=== PATIENT | female | born 1940 | race Caucasian/White ===

== ENCOUNTER 2018-04-23 08:19 | Outpatient (CLI) | payer MEDICARE, BC ==
--- NOTE | 2018-04-23 09:41 | ULT ---
ABDOMINAL ULTRASOUND: HISTORY: Followup of hepatic cyst, abdominal pain. COMPARISON: A 05/16/06 CT study. FINDINGS: Real-time images of the upper abdomen demonstrate a large gallstone within the gallbladder. The comm on duct is 4 mm. The liver parenchyma shows a 3.6 cm cyst in the more posterior aspect of the liver which appears to be more left lobe. Minimally increased in size as compared to the 2006 study when i t measured in the 3 cm range. Differences could be just on the differences of ultrasound and CT. Th e spleen measures 10.4 cm in length. Right and left kidneys are normal in size and not obstructed. Pancreas is obscured. Abdominal aorta and IVC regions appear unremarkable. IMPRESSION: 1. Large gallstone with a normal caliber common duct. 2. A 3.2 x 3.6 cm hepatic cyst. POS: [facility]
--- NOTE | 2018-04-23 15:53 | MMO ---
BILATERAL SCREENING MAMMOGRAM: HISTORY: Annual screening examination. History of a benign left breast biopsy. COMPARISON: 04/02/12, 03/25/13, 03/31/14 exams. Films are reviewed with the assistance of computer-aided detection. FINDINGS: The breasts are heterogeneously dense. There are popcorn-type calcifications and other benign-appear ing calcifications seen in both breasts. There is no dominant mass, suspicious calcification, or oth er signs of malignancy. IMPRESSION: BI-RADS category 2 - benign findings. BIRADS 2: Benign Finding(s) Routine annual screening mammography (for women over age 40) POS: [facility]
== END 2018-04-23 08:20 | disposition home or self-care (01) ==
LOC: SCSULT 08:19
PROVIDERS: ATTEND Internal Medicine
DX: Z12.31 Encounter for screening mammogram for malignant neoplasm of breast (principal); N28.1 Cyst of kidney, acquired; K76.89 Other specified diseases of liver; K80.20 Calculus of gallbladder without cholecystitis without obstruction
CPT/HCPCS: 76700; 77067

== ENCOUNTER 2019-05-13 14:18 | Outpatient (CLI) | payer MEDICARE, BC ==
--- NOTE | 2019-05-13 15:19 | BD ---
DEXA BONE DENSITY STUDY: Date: 05/13/19 HISTORY: Postmenopausal. FINDINGS: Lumbar Spine: BMD (g/cm2) L1 1.099 T-Score: +1.0 L2 1.099 T-Score: +0.6 L3 1.169 T-Score: +0.8 L4 1.105 T-Score: +0.4 Total 1.119 T-Score: +0.7 Left Femoral Neck: 0.737 T-Score: -1.0 Total Femur: 0.974 T-Score: +0.3 IMPRESSION: Normal bone mineral density of the lumbar spine and left femoral neck. POS: [facility]
--- NOTE | 2019-05-13 15:52 | MMO ---
Bilateral MAMMO Bilat Screen [facility]. CLINICAL HISTORY: Patient is 79 years old and is seen for screening. The patient has no family history of breast cancer. The patient has a history of uterine cancer at age 53. VIEWS: The views performed were: bilateral craniocaudal with tomosynthesis and bilateral mediolateral oblique with tomosynthesis. FILMS COMPARED: The present examination has been compared to prior imaging studies performed at [facility] on 04/02/2012, 03/25/2013, 03/31/2014 and 04/23/2018. MAMMOGRAM FINDINGS: The breasts are heterogeneously dense, which could obscure a lesion on mammography. Benign calcifications are noted bilaterally. There are no suspicious masses, suspicious calcifications, or new areas of architectural distortion. IMPRESSION: THERE IS NO MAMMOGRAPHIC EVIDENCE OF MALIGNANCY. A ROUTINE FOLLOW-UP MAMMOGRAM IN 1 YEAR IS RECOMMENDED. THE RESULTS OF THIS EXAM WERE SENT TO THE PATIENT. ACR BI-RADS Category 2 - Benign finding MAMMOGRAPHY NOTE: 1. A negative mammogram report should not delay a biopsy if a dominant of clinically suspicious mass is present. 2. Approximately 10% to 15% of breast cancers are not detected by mammography. 3. Adenosis and dense breasts may obscure an underlying neoplasm.
== END 2019-05-13 14:19 | disposition home or self-care (01) ==
LOC: BICMAMMO 14:18
PROVIDERS: ATTEND Internal Medicine
DX: Z12.31 Encounter for screening mammogram for malignant neoplasm of breast (principal); Z13.820 Encounter for screening for osteoporosis; Z78.0 Asymptomatic menopausal state; Z85.42 Personal history of malignant neoplasm of other parts of uterus
CPT/HCPCS: 77063; 77067; 77080

== ENCOUNTER 2019-12-23 13:25 | Outpatient (CLI) | payer MEDICARE, BC ==
--- NOTE | 2019-12-23 14:41 | MMO ---
Left Breast MAMMO Unilat Diag [facility]. CLINICAL HISTORY: Patient is 79 years old and is seen for diagnostic exam and palpable abnormality in the left breast. The patient has no family history of breast cancer. The patient has a history of uterine cancer at age 53. The patient has a history of left needle biopsy at age 16 - benign. VIEWS: The views performed were: left craniocaudal with tomosynthesis; left mediolateral oblique with tomosynthesis; left mediolateral with tomosynthesis; and left exaggerated craniocaudal with tomosynthesis. FILMS COMPARED: The present examination has been compared to prior imaging studies performed at [facility] on 03/25/2013, 03/31/2014, 04/23/2018 and 05/13/2019. This study has been interpreted with the assistance of computer-aided detection. MAMMOGRAM FINDINGS: The breast is heterogeneously dense, which could obscure a lesion on mammography. Benign calcifications are noted bilaterally. No mammographic or sonograhic abnormality is seen at the site of palpable concern in the left axilla. There are no suspicious masses, suspicious calcifications, or new areas of architectural distortion. IMPRESSION: THERE IS NO MAMMOGRAPHIC EVIDENCE OF MALIGNANCY. A ROUTINE FOLLOW-UP MAMMOGRAM IN 1 YEAR IS RECOMMENDED. THE RESULTS OF THIS EXAM WERE SENT TO THE PATIENT. ACR BI-RADS Category 2 - Benign finding MAMMOGRAPHY NOTE: 1. A negative mammogram report should not delay a biopsy if a dominant of clinically suspicious mass is present. 2. Approximately 10% to 15% of breast cancers are not detected by mammography. 3. Adenosis and dense breasts may obscure an underlying neoplasm. Reported by: TERRIE KHAN MD Electonically Signed: [id number]
--- NOTE | 2019-12-23 14:42 | ULT ---
"PRELIMINARY REPORT" Exam: Nuclear medicine cardiac stress with EF and wall motion HISTORY: Coronary disease. Status post CABG. Congestive heart failure. COMPARISON: 10/14/2018 TECHNIQUE: Patient was administered 9.10 mCi of technetium 99 sestamibi for rest imaging and 29 mm of technetium sestamibi for stress imaging. Cardiac gating was performed FINDINGS: Homogeneous distribution of radiotracer on the stress attenuation correction images. There does not a ppear to be any significant reversibility. End-diastolic volume is 162 mL End systolic volume is 89 mL 3 times a day is 1.0 Cardiac gating: Decreased motion and thickening involving the septum. Overall, there is also evidence of global hypokinesis. 45% ejection fraction IMPRESSION: No reversibility. 2. Global hypokinesis with decreased motion of the septum. 45% ejection fraction
--- NOTE | 2019-12-23 15:01 | ULT ---
ULTRASOUND SOFT TISSUE OTHER: (LEFT AXILLA) HISTORY: Palpable abnormality in the left axilla. FINDINGS: Correlation is made with mammogram of the same day. There is a 1.5 x 0.7 x 1.6 cm reniform nodule in the left axilla at the site of palpable concern with a cortical thickness of less than 3 mm and the presence of focal fatty hilum. The margins are martir h. This is consistent normal lymph node. IMPRESSION: BIRADS category 2 - benign findings. Return to annual mammographic screening. POS: [facility]
== END 2019-12-23 13:26 | disposition home or self-care (01) ==
LOC: BICMAMMO 13:25
PROVIDERS: ATTEND Internal Medicine
DX: N63.20 Unspecified lump in the left breast, unspecified quadrant (principal)
CPT/HCPCS: 76999; 77065; G0279

== ENCOUNTER 2021-12-13 13:13 | Outpatient (CLI) | payer MEDICARE, BC | END 2021-12-13 13:14 | disposition home or self-care (01) | LOC: BICMAMMO 13:13 | PROVIDERS: ATTEND Internal Medicine | DX: Z12.31 Encounter for screening mammogram for malignant neoplasm of breast (principal); M85.48 Solitary bone cyst, other site; M85.2 Hyperostosis of skull; Z85.42 Personal history of malignant neoplasm of other parts of uterus; Z91.89 Other specified personal risk factors, not elsewhere classified | CPT/HCPCS: 70260; 77063; 77067 ==

== ENCOUNTER 2022-04-11 14:13 | Outpatient (CLI) | payer MEDICARE, BC | END 2022-04-11 14:14 | disposition home or self-care (01) | LOC: BICRAD 14:13 | PROVIDERS: ATTEND Internal Medicine | DX: M25.551 Pain in right hip (principal); R10.9 Unspecified abdominal pain; K80.20 Calculus of gallbladder without cholecystitis without obstruction; M16.0 Bilateral primary osteoarthritis of hip | CPT/HCPCS: 72170; 74019 ==

== ENCOUNTER 2022-06-14 12:36 | Outpatient (CLI) | payer MEDICARE, BC ==
[~2022-06-14 12:36] MED LIST: Iopamidol-370 76% 500 ML 1 ML ONE
== END 2022-06-14 12:37 | disposition home or self-care (01) ==
LOC: BICCT 12:36
PROVIDERS: ATTEND Internal Medicine
DX: R10.30 Lower abdominal pain, unspecified (principal); K80.20 Calculus of gallbladder without cholecystitis without obstruction; M16.0 Bilateral primary osteoarthritis of hip
CPT/HCPCS: 74177; 82565; Q9967

== ENCOUNTER 2022-09-29 05:32 | Inpatient (IN) | payer MEDICARE, BC ==
[2022-09-28 12:50] VITALS: BMI 34.2
[2022-09-29] MEDS ORDERED: CEFAZOLIN 2 GM VIAL ONE (06:15)
[2022-09-29] MEDS ORDERED: Sodium Chloride 0.9% 100 ML ONE ×2 (06:15)
[2022-09-29] MEDS ORDERED: Tranexamic Acid 1,000 MG/10 ML VIAL ONE (06:15)
[2022-09-29] MEDS ORDERED: Vancomycin 1 GM/200 ML (PREMIX) BAG ONE (06:18)
[2022-09-29] MEDS ORDERED: Lidocaine 1% MPF 2 ML VIAL ONE (06:18)
[2022-09-29 07:09] LABS: SARS-CoV-2 NAA Rapid Test Not Detected (NotDetected)
[2022-09-29] MEDS ORDERED: diphenhydrAMINE 25 MG CAP PO PRN (07:15)
[2022-09-29] MEDS ORDERED: Acetaminophen 325 MG TAB PO PRN (07:15)
[2022-09-29] MEDS ORDERED: Zolpidem Tartrate 5 MG TAB PO PRN (07:15)
[2022-09-29] MEDS ORDERED: Ondansetron PF 4 MG/2 ML Vial IVP PRN (07:15)
[2022-09-29] MEDS ORDERED: Fentanyl 100 MCG/2 ML VIAL SLOW IVP PRN (07:15)
[2022-09-29] MEDS ORDERED: Promethazine HCl 25 MG/ML VIAL IM PRN (07:15)
[2022-09-29] MEDS ORDERED: HYDROcodone/Acetaminophen 10/325 mg Tablet PO PRN (07:15)
[2022-09-29] MEDS ORDERED: PHENYLEPHRINE-NS 100 MCG/ML 10 ML SYRINGE ONE (07:26)
[2022-09-29] MEDS ORDERED: PROPOFOL 200 MG/20 ML VIAL ONE (07:26)
[2022-09-29] MEDS ORDERED: Bupivacaine HCl 0.5%/Epinephrine 1:200,000/PF 30 ml Vial ONE (08:20)
[2022-09-29] MEDS ORDERED: Bupivacaine/Epinephrine 0.25% 30 ML VIAL ONE (08:20)
[2022-09-29] MEDS ORDERED: Bupivacaine 0.25% HCL 30 ML VIAL ONE (08:21)
[2022-09-29] MEDS ORDERED: Bupivacaine PF 0.5% 30 ML VIAL ONE (08:21)
[2022-09-29] MEDS: HYDROcodone/Acetaminophen 10/325 mg Tablet PO PRN ×2 (10:18→15:21)
[2022-09-29] MEDS: metFORMIN 500 MG TAB PO SCH ×2 (10:25→17:34)
[2022-09-29] MEDS: Sodium Chloride 0.9% 1,000 ML IV SCH ×2 (10:25→17:17)
[2022-09-29] MEDS: Aspirin 81 mg Enteric Coated Tablet PO SCH ×2 (11:45→20:48)
[2022-09-29] MEDS ORDERED: FENTANYL 50 MCG/ML 1 ML VIAL SLOW IVP PRN (12:45)
[2022-09-29] MEDS: CEFAZOLIN 2 GM in Sodium Chloride 0.9% 100 ML IVPB SCH ×2 (15:20→23:27)
[2022-09-29] MEDS: Losartan 25 MG TAB PO SCH (15:20)
[2022-09-29] MEDS: Amlodipine 10 MG TAB PO SCH (15:21)
[2022-09-29] MEDS: Simvastatin 10 MG TAB PO SCH (20:48)
[2022-09-30] MEDS: Sodium Chloride 0.9% 1,000 ML IV SCH ×2 (01:34→14:33)
[2022-09-30 05:42] LABS: Hemoglobin 11.8 g/dL (12.0-16.0); Mean Corpuscular HGB CONC 32.5 g/dL (32.0-36.0); Mean Corpuscular Hemoglobin 30.7 pg (27.0-31.0); Mean Corpuscular Volume 94.5 fl (78.0-98.0); Mean Platelet Volume 7.9 fL (7.4-10.4); Platelet Count 137 10x3/uL (130-400); RBC Distribution Width 12.1 % (11.5-14.5); Red Blood Cell (RBC) Count 3.86 mill/uL (4.20-5.40); White Blood Cell (WBC) Count 9.2 10x3/uL (4.8-10.8)
[2022-09-30] MEDS: Senokot S 8.6-50 MG TAB PO SCH ×2 (09:55→20:02)
[2022-09-30] MEDS: metFORMIN 500 MG TAB PO SCH ×2 (09:56→18:21)
[2022-09-30] MEDS: Amlodipine 10 MG TAB PO SCH (09:56)
[2022-09-30] MEDS: Ferrous Gluconate 324 MG TAB PO SCH ×2 (09:57→18:21)
[2022-09-30] MEDS: Losartan 25 MG TAB PO SCH (09:57)
[2022-09-30] MEDS: HYDROcodone/Acetaminophen 10/325 mg Tablet PO PRN ×2 (09:58→14:33)
[2022-09-30] MEDS: Aspirin 81 mg Enteric Coated Tablet PO SCH ×2 (09:58→20:01)
[2022-09-30] MEDS: Multivitamin W/ Minerals 1 TAB PO SCH (09:58)
[2022-09-30] MEDS: Simvastatin 10 MG TAB PO SCH (20:02)
[2022-10-01] MEDS: Sodium Chloride 0.9% 1,000 ML IV SCH ×5 (00:05→19:35)
[2022-10-01] MEDS: Ferrous Gluconate 324 MG TAB PO SCH ×2 (09:23→17:36)
[2022-10-01] MEDS: Aspirin 81 mg Enteric Coated Tablet PO SCH ×2 (09:23→21:01)
[2022-10-01] MEDS: Multivitamin W/ Minerals 1 TAB PO SCH (09:23)
[2022-10-01] MEDS: Amlodipine 10 MG TAB PO SCH (09:23)
[2022-10-01] MEDS: metFORMIN 500 MG TAB PO SCH ×2 (09:24→17:36)
[2022-10-01] MEDS: Senokot S 8.6-50 MG TAB PO SCH ×2 (09:24→21:01)
[2022-10-01] MEDS: Losartan 25 MG TAB PO SCH (09:24)
[2022-10-01] MEDS: HYDROcodone/Acetaminophen 10/325 mg Tablet PO PRN (09:27)
[2022-10-01] MEDS: Simvastatin 10 MG TAB PO SCH (21:01)
[2022-10-02] MEDS: Sodium Chloride 0.9% 1,000 ML IV SCH (07:51)
[2022-10-02 08:50] VITALS: TEMP 98.7
[2022-10-02] MEDS: Ferrous Gluconate 324 MG TAB PO SCH (08:51)
[2022-10-02] MEDS: Senokot S 8.6-50 MG TAB PO SCH (08:52)
[2022-10-02] MEDS: Aspirin 81 mg Enteric Coated Tablet PO SCH (08:52)
[2022-10-02] MEDS: Losartan 25 MG TAB PO SCH (08:52)
[2022-10-02] MEDS: metFORMIN 500 MG TAB PO SCH (08:52)
[2022-10-02] MEDS: Multivitamin W/ Minerals 1 TAB PO SCH (08:52)
[2022-10-02] MEDS: Amlodipine 10 MG TAB PO SCH (08:52)
[2022-10-02 12:06] VITALS: BP 135/82
== END 2022-10-02 15:52 | disposition short-term general hospital, planned readmission (82) | DRG 470 ==
LOC: SDC 05:32 → SJJU 10:14 → SDC 10:44 → SJJU 10:52 → OBSVTOIN 09-30 07:10
PROVIDERS: ADMIT Orthopaedic Surgery; ATTEND Orthopaedic Surgery
PROC: 0SRB049 Replacement of Left Hip Joint with Ceramic on Polyethylene Synthetic Substitute, Cemented, Open Approach (ICD-10-PCS; principal; 2022-09-29)
DX: M16.12 Unilateral primary osteoarthritis, left hip (principal); Z20.822 Contact with and (suspected) exposure to COVID-19; Z90.710 Acquired absence of both cervix and uterus; Z91.040 Latex allergy status; Z79.899 Other long term (current) drug therapy
CPT/HCPCS: 36415; 36416; 80048; 85025; 85027; 85610; 93005; 93010; 96365; 96375; 96376; C1776; G0378; J2704; J3010; J3370; J3490; S0020; U0002